=== PATIENT | female | born 1960 | race Caucasian/White ===

== ENCOUNTER 2020-10-14 06:31 | Emergency (ER) | payer BC ==
[~2020-10-14] VITALS: Ht 172.7 cm; Wt 101.8 kg
[2020-10-14] MEDS ORDERED: FLEXERIL 1010 MG/TAB PO (08:26)
[2020-10-14] MEDS ORDERED: LIDODERM 5% PATC1 EA TP (08:26)
[2020-10-14] MEDS ORDERED: NORCO 325 MG-51 TAB PO (08:26)
[2020-10-14 08:32] VITALS: BP 140/70; PULSE 68; TEMP 97.7
== END 2020-10-14 08:32 | disposition home or self-care (01) ==
LOC: COL.ER 06:31
DX: M54.5 Low back pain (principal); F17.200 Nicotine dependence, unspecified, uncomplicated; Z88.6 Allergy status to analgesic agent; Z88.8 Allergy status to other drugs, medicaments and biological substances

== ENCOUNTER → 2022-04-24 | Outpatient (CLI) | payer BC ==
[~2022-04-24] MED LIST: FLEXERIL 1010 MG/TAB PO; LIDODERM 5% PATC1 EA TP; NORCO 325 MG-51 TAB PO
== END ==
LOC: MC.RAD 09:57
DX: Z12.31 Encounter for screening mammogram for malignant neoplasm of breast (principal)

== ENCOUNTER 2022-04-27 16:01 | Emergency (ER) | payer BC ==
[~2022-04-27] VITALS: Ht 167.6 cm; Wt 95.5 kg
[2022-04-27 16:16] VITALS: TEMP 98
[2022-04-27 16:41] LABS: BASO # 0.1 K/mm3 (0.0-0.2); BASO % 0.7 % (0.0-2.0); EOS # 0.4 K/mm3 (0.0-0.7); EOS % 4.6 % (0.0-4.0); GRAN # 4.8 K/mm3 (1.4-6.5); HEMATOCRIT 38.6 % (37.0-47.0); HEMOGLOBIN 13.1 g/dl (12.5-16.0); LYMPH # 2.9 K/mm3 (1.2-3.4); LYMPH % 33.7 % (20.0-51.0); MEAN CELL VOLUME 88 fl (80.0-100.0); MEAN CORPUSCULAR HEMOGLOBIN 30 pg (27-31); MEAN CORPUSCULAR HGB CONC 34 g/dl (33.0-37.0); MEAN PLATELET VOLUME 10.2 fl (7.4-10.4); MONO # 0.5 K/mm3 (0.1-0.6); MONO % 5.9 % (1.7-9.3); PLATELET COUNT 299 K/mm3 (130-400); REDCELL DISTRIBUTION WIDTH-CV 12.6 % (11.5-14.5)
[2022-04-27 16:48] LABS: INR 1.1 (0.8-3.0); PROTHROMBIN TIME 12.4 SECONDS (9.7-12.8)
[2022-04-27 16:51] LABS: PARTIAL THROMBOPLASTIN TIME 29.4 SECONDS (26.0-37.0)
[2022-04-27 16:58] LABS: ALANINE AMINOTRANSFERASE 11 U/L (0-55); ALBUMIN 3.9 gm/dL (3.5-5.0); ALKALINE PHOSPHATASE 78 U/L (40-150); ANION GAP 12 mmol/L (7-16); AST,SGOT 13 U/L (5-34); BILIRUBIN,TOTAL 0.4 mg/dL (0.2-1.2); BLOOD UREA NITROGEN 24 mg/dL (10-20); CALCIUM 9.1 mg/dL (8.4-10.2); CARBON DIOXIDE 22 mmol/L (22-29); CHLORIDE 109 mmol/L (98-107); CREATININE, serum 0.94 mg/dL (0.57-1.11); GLUCOSE 95 mg/dL (70-99); POTASSIUM 4.1 mmol/L (3.5-4.5); SODIUM 143 mmol/L (136-145); TOTAL PROTEIN 6.7 gm/dL (6.2-8.1)
[2022-04-27 17:05] LABS: TROPONIN-I < 0.010 ng/mL (0.00-0.033)
[2022-04-27 20:27] VITALS: BP 158/76; PULSE 72
== END 2022-04-27 20:28 | disposition home or self-care (01) ==
LOC: COL.ER 16:01
PROVIDERS: Emergency Medicine
DX: R07.89 Other chest pain (principal); F17.210 Nicotine dependence, cigarettes, uncomplicated

== ENCOUNTER → 2023-06-03 | Outpatient (CLI) | payer BC | LOC: CANSCHCLI → MC.RAD 09:37 | DX: Z12.31 Encounter for screening mammogram for malignant neoplasm of breast (principal) ==

== ENCOUNTER → 2023-08-15 | Outpatient (CLI) | payer BC ==
[~2023-08-15] VITALS: Ht 167.6 cm; Wt 110.8 kg
[~2023-08-15] MED LIST changes: +COZAAR 50MG50 MG/TAB PO; +CYMBALTA 60MG60 MG PO; +LIDO35.4 TP; +PRIL40 PO
[2023-08-15 08:37] VITALS: BP 128/96; PULSE 116; TEMP 97.6
[2023-08-15 09:18] VITALS: BP 146/92; PULSE 107
--- NOTE | 2023-08-15 09:35 | NUR ---
Pt reports thighs feel weak/jelloey. Pt to remain an additional 15 minutes to improve thighs.
--- NOTE | 2023-08-15 09:45 | NUR ---
Discharge instructions gone over with pt. Pt verbalized understanding of instructions. Copy given to pt. Pt up and walks in room. Pt reports she is able to get up much easier and legs feel better. Pt reports her pain is down to 4/10. Pt out to car per wheelchair. Pt up and into car without assistance.
== END ==
LOC: COL.RAD 08:00
DX: M48.061 Spinal stenosis, lumbar region without neurogenic claudication (principal); M54.16 Radiculopathy, lumbar region
CPT/HCPCS: J0665; J3301

== ENCOUNTER → 2023-09-03 | Outpatient (CLI) | payer BC | LOC: MHCPAIN 12:27 | DX: M48.062 Spinal stenosis, lumbar region with neurogenic claudication (principal); F17.210 Nicotine dependence, cigarettes, uncomplicated | CPT/HCPCS: G0463 ==

== ENCOUNTER 2023-11-29 12:17 | Emergency (ER) | payer BC ==
[~2023-11-29] VITALS: Ht 167.6 cm; Wt 120.5 kg
[2023-11-29 12:24] VITALS: TEMP 98.2
[2023-11-29 13:40] LABS: BASO % 0.5 % (0.0-2.0); EOS # 0.6 K/mm3 (0.0-0.7); EOS % 7.4 % (0.0-4.0); GRAN # 5.6 K/mm3 (1.4-6.5); GRAN % 65.3 % (42.2-75.2); HEMOGLOBIN 11.4 g/dl (12.5-16.0); LYMPH # 1.8 K/mm3 (1.2-3.4); LYMPH % 20.7 % (20.0-51.0); MEAN CELL VOLUME 90 fl (80.0-100.0); MEAN CORPUSCULAR HEMOGLOBIN 29 pg (27-31); MEAN CORPUSCULAR HGB CONC 32 g/dl (33.0-37.0); MEAN PLATELET VOLUME 9.6 fl (7.4-10.4); MONO # 0.5 K/mm3 (0.1-0.6); MONO % 5.9 % (1.7-9.3); PLATELET COUNT 319 K/mm3 (130-400); RED BLOOD COUNT 3.99 M/mm3 (4.10-5.30)
[2023-11-29 14:06] LABS: ALANINE AMINOTRANSFERASE 14 U/L (0-55); ALBUMIN 3.3 g/dL (3.4-4.8); ALKALINE PHOSPHATASE 112 U/L (40-150); ANION GAP 8 mmol/L (7-16); AST,SGOT 14 U/L (5-34); BILIRUBIN,TOTAL 0.3 mg/dL (0.2-1.2); BLOOD UREA NITROGEN 20 mg/dL (10-20); CALCIUM 9.2 mg/dL (8.4-10.2); CHLORIDE 103 mEq/L (98-107); CREATININE, serum 1.02 mg/dL (0.57-1.11); GLUCOSE 123 mg/dL (70-99); POTASSIUM 4.5 mEq/L (3.5-4.5); SODIUM 138 mEq/L (136-145); TOTAL PROTEIN 6.5 g/dl (6.2-8.1)
[2023-11-29 14:50] LABS: TROPONIN-I < 0.010 ng/mL (0.00-0.033)
[2023-11-29 14:57] VITALS: BP 160/97; PULSE 96
== END 2023-11-29 15:30 | disposition home or self-care (01) ==
LOC: COL.ER 12:17
PROVIDERS: Nurse Practitioner Family
DX: I10 Essential (primary) hypertension (principal); G89.29 Other chronic pain; M54.50 Low back pain, unspecified; R00.0 Tachycardia, unspecified; M79.89 Other specified soft tissue disorders

== ENCOUNTER → 2023-11-29 | Outpatient (CLI) | payer BC ==
[~2023-11-29] MED LIST changes: +FLONASEALLERGY NS; +LASIX 20MG TABL20 MG; +NEURONTIN300 MG/CAP PO; +PROVENTIL0.09 MG/A1 IH; +VALIUM 2MG T2 MG/TAB PO; +VALIUM 5MG T5 MG/TAB PO
== END ==
LOC: COL.VAS 11:19
DX: Z01.818 Encounter for other preprocedural examination (principal); R00.0 Tachycardia, unspecified; R60.0 Localized edema